=== PATIENT | female | born 1950 | race Caucasian/White ===

== ENCOUNTER 2023-02-07 05:59 | Day surgery (SDC) | payer OTHER ==
[~2023-02-07] VITALS: Ht 152.4 cm; Wt 55.8 kg
[~2023-02-07 05:59] MED LIST: AVAPRO300 MG PO; CALTRATE 600 +1 EAC1 PO; HYDROCHLOROTHIA25 MG PO; JENTADUETO 2.51 EACH PO; TOLTERODINE TART4 MG PO; ULTRACET PO
[2023-02-07] MEDS ORDERED: PERCOCET 5-3251 EACH PO (09:39)
[2023-02-07] MEDS ORDERED: RECTICARE30 GM TOP (09:39)
== END 2023-02-07 13:40 | disposition home or self-care (01) ==
LOC: CIR.AMB 05:59
PROVIDERS: ATTEND Surgery
DX: K62.82 Dysplasia of anus (principal); K57.30 Diverticulosis of large intestine without perforation or abscess without bleeding; R19.4 Change in bowel habit; A63.0 Anogenital (venereal) warts; I10 Essential (primary) hypertension; Z20.822 Contact with and (suspected) exposure to COVID-19